=== PATIENT | male | born 1960 | race African-American/Black ===

== ENCOUNTER 2024-04-01 17:55 | Inpatient (IN) | payer MEDICARE, OTHER ==
[2024-04-01 19:17] VITALS: BMI 24.5
[2024-04-01] MEDS ORDERED: BENZOCAINE/MENTHOL (CHLORASEPTIC ) LOZENGE MM PRN (22:48)
[2024-04-01] MEDS ORDERED: POLYETHYLENE GLYCOL (HEALTHYLAX) 3350 17 GM PACKET PO PRN (22:48)
[2024-04-01] MEDS ORDERED: guaiFENesin 600 MG TABLET.ER (FP) PO PRN (22:48)
[2024-04-01] MEDS ORDERED: NALOXONE HCL 0.4 MG/ML VIAL IM PRN (22:48)
[2024-04-01] MEDS ORDERED: ACETAMINOPHEN 325 MG TABLET (FP) PO PRN (22:48)
[2024-04-01] MEDS ORDERED: MAGNESIUM HYDROX 2400MG/30ML ORAL SUSPENSION 30 ML CUP PO PRN (22:48)
[2024-04-01] MEDS ORDERED: BISMUTH SUBSALICYLATE 524 MG/30 ML PO PRN (22:48)
[2024-04-01] MEDS ORDERED: BENZONATATE 200 MG CAPSULE PO PRN (22:48)
[2024-04-01] MEDS ORDERED: NALOXONE (NARCAN) HCL 4 MG/0.1 ML SPRAY NS PRN (22:48)
[2024-04-01] MEDS ORDERED: ONDANSETRON *ODT* 4 MG TABLET SL PRN (22:48)
[2024-04-01] MEDS ORDERED: LOPERAMIDE HCL 2 MG CAPSULE PO PRN (22:48)
[2024-04-01] MEDS ORDERED: IBUPROFEN 600 MG TABLET (FP) PO PRN (22:48)
[2024-04-01] MEDS ORDERED: IBUPROFEN 400 MG TABLET (FP) PO PRN (22:48)
[2024-04-01] MEDS ORDERED: NICOTINE POLACRILEX 2 MG GUM BUC PRN (22:48)
[2024-04-01] MEDS: cloNIDine HCL 0.1 MG TABLET PO ONE (23:49)
[2024-04-02] MEDS: PRENATAL VITAMINS W/ FOLIC ACID TABLET (FP) PO SCH (10:20)
[2024-04-02] MEDS: NICOTINE 14 MG/24 HOURS TOPICAL PATCH TD SCH (10:21)
[2024-04-02] MEDS ORDERED: diazePAM 5 MG TABLET PO PRN (10:51)
[2024-04-02] MEDS: amLODIPine BESYLATE 5 MG TABLET (FP) PO SCH (11:55)
[2024-04-02] MEDS: PHENYTOIN NA EXTENDED 100 MG CAPSULE (FP) PO SCH (11:55)
[2024-04-02] MEDS: ASPIRIN 81 MG CHEWABLE TABLETS PO SCH (11:55)
[2024-04-02] MEDS: diazePAM 5 MG TABLET PO SCH (11:55)
[2024-04-02] MEDS: ALBUTEROL SO4 HFA INHALER IH PRN (17:55)
[2024-04-02] MEDS: MAG HYDROX/AL HYDROX/SIMETH 30 ML UNIT-DOSE CUP PO PRN (18:14)
[2024-04-02] MEDS: BUDESONIDE/FORMETEROL FUMARATE 80/4.5 mcg INHALER IH SCH (22:18)
[2024-04-02] MEDS: THIAMINE 100 MG TABLET PO SCH (22:19)
[2024-04-02] MEDS: ATORVASTATIN CA 40 MG TABLET (FP) PO SCH (22:19)
[2024-04-02] MEDS: MELATONIN 5 MG TABLETS PO SCH (22:19)
[2024-04-03] MEDS: traZODone HCL 50 MG TABLET (FP) PO SCH (22:34)
[2024-04-04] MEDS: diazePAM 5 MG TABLET PO SCH (05:58)
[2024-04-05 03:25] VITALS: RESP 16
[2024-04-05] MEDS: diazePAM 5 MG TABLET PO SCH (06:20)
[2024-04-05 13:24] VITALS: BP 156/76; PULSE 90; TEMP 97.9
[2024-04-05] MEDS: PHENYTOIN NA EXTENDED 100 MG CAPSULE (FP) PO SCH (13:40)
[2024-04-06] MEDS ORDERED: diazePAM 5 MG TABLET PO ONE (06:00)
== END 2024-04-05 14:16 | disposition home or self-care (01) | DRG 897 ==
LOC: YASAS 17:55 → Y3N 22:49
PROVIDERS: ADMIT Allergy & Immunology; ATTEND Surgery
PROC: HZ2ZZZZ Detoxification Services for Substance Abuse Treatment (ICD-10-PCS; principal; 2024-04-01)
DX: F10.230 Alcohol dependence with withdrawal, uncomplicated (principal); Z59.00 Homelessness unspecified; G40.909 Epilepsy, unspecified, not intractable, without status epilepticus; E78.5 Hyperlipidemia, unspecified; I10 Essential (primary) hypertension; J45.909 Unspecified asthma, uncomplicated; R26.89 Other abnormalities of gait and mobility; Z91.81 History of falling; Z99.89 Dependence on other enabling machines and devices; Z56.0 Unemployment, unspecified
CPT/HCPCS: 80305; 80307; 93005; 93010

== ENCOUNTER 2024-04-13 08:20 | Inpatient (IN) | payer MEDICARE, OTHER ==
[2024-04-13 08:50] VITALS: BMI 26.9
[2024-04-13] MEDS ORDERED: ACETAMINOPHEN 325 MG TABLET (FP) PO PRN (09:36)
[2024-04-13] MEDS ORDERED: MAGNESIUM HYDROX 2400MG/30ML ORAL SUSPENSION 30 ML CUP PO PRN (09:36)
[2024-04-13] MEDS ORDERED: IBUPROFEN 600 MG TABLET (FP) PO PRN (09:36)
[2024-04-13] MEDS ORDERED: BENZOCAINE/MENTHOL (CHLORASEPTIC ) LOZENGE MM PRN (09:36)
[2024-04-13] MEDS ORDERED: BENZONATATE 200 MG CAPSULE PO PRN (09:36)
[2024-04-13] MEDS ORDERED: hydrOXYzine PAMOATE 25 MG CAPSULE (FP) PO PRN (09:36)
[2024-04-13] MEDS ORDERED: IBUPROFEN 400 MG TABLET (FP) PO PRN (09:36)
[2024-04-13] MEDS ORDERED: NALOXONE (NARCAN) HCL 4 MG/0.1 ML SPRAY NS PRN (09:36)
[2024-04-13] MEDS ORDERED: guaiFENesin 600 MG TABLET.ER (FP) PO PRN (09:36)
[2024-04-13] MEDS ORDERED: NICOTINE POLACRILEX 2 MG GUM BUC PRN (09:36)
[2024-04-13] MEDS ORDERED: LOPERAMIDE HCL 2 MG CAPSULE PO PRN (09:36)
[2024-04-13] MEDS ORDERED: PRENATAL VITAMINS W/ FOLIC ACID TABLET (FP) PO ONE (09:54)
[2024-04-13] MEDS: PRENATAL VITAMINS W/ FOLIC ACID TABLET (FP) PO SCH (09:54)
[2024-04-13] MEDS: MELATONIN 5 MG TABLETS PO SCH (21:57)
[2024-04-13] MEDS: THIAMINE 100 MG TABLET PO SCH (21:57)
[2024-04-13] MEDS: BUDESONIDE/FORMETEROL FUMARATE 80/4.5 mcg INHALER IH SCH (21:58)
[2024-04-13] MEDS: ATORVASTATIN CA 40 MG TABLET (FP) PO SCH (21:58)
[2024-04-13] MEDS: PHENYTOIN NA EXTENDED 100 MG CAPSULE (FP) PO SCH (21:58)
[2024-04-14] MEDS: ALBUTEROL SO4 HFA INHALER IH PRN (06:51)
[2024-04-14] MEDS ORDERED: traZODone HCL 50 MG TABLET (FP) PO PRN (09:38)
[2024-04-14] MEDS ORDERED: hydrOXYzine PAMOATE 25 MG CAPSULE (FP) PO PRN (09:38)
[2024-04-14] MEDS ORDERED: amLODIPine BESYLATE 5 MG TABLET (FP) PO SCH ×2 (10:00)
[2024-04-14] MEDS: ASPIRIN 81 MG CHEWABLE TABLETS PO SCH (10:29)
[2024-04-14] MEDS: amLODIPine BESYLATE 2.5 MG TABLET (FP) PO SCH (10:31)
[2024-04-14 13:24] LABS: HEMATOCRIT 40.2 % (35.4-49); HEMOGLOBIN 13.5 GM/dL (11.7-16.9); MCH 32.5 pg (25.7-33.7); MCHC 33.5 g/dl (32.0-35.9); MEAN CELL VOLUME 96.9 fl (80-96); MEAN PLT VOLUME 9.3 fl (7.5-11.1); PLATELET COUNT 282 10^3/uL (134-434); POTASSIUM 4.2 mmol/L (3.5-5.1); RBC 4.15 M/mm3 (4.00-5.60); RDW 14.3 % (11.9-15.9); WHITE BLOOD COUNT 6.7 K/mm3 (4.0-10.0)
[2024-04-14 13:26] LABS: CALCIUM 10.2 mg/dL (8.5-10.1)
[2024-04-14 13:27] LABS: INR 1.03 (0.83-1.09); PROTHROMBIN TIME (PATIENT) 11.8 SEC (9.7-13.0)
[2024-04-14 13:28] LABS: ALBUMIN 3.5 g/dl (3.4-5.0); BLOOD UREA NITROGEN 13.8 mg/dL (7-18); MAGNESIUM 2.2 mg/dL (1.8-2.4)
[2024-04-14 13:31] LABS: CREATININE 0.9 mg/dL (0.55-1.3)
[2024-04-14 13:32] LABS: TOT PROT 6.5 g/dl (6.4-8.2)
[2024-04-14 15:09] LABS: BILIRUBIN,TOTAL 0.3 mg/dL (0.2-1)
[2024-04-14] MEDS: traZODone HCL 50 MG TABLET (FP) PO PRN (23:09)
[2024-04-15] MEDS: FLU VACCINE (FLULAVAL) PF 45 MCG/0.5 ML SYRINGE 2024-2025 IM ONE (11:09)
[2024-04-15] MEDS: PNEUMOC 20-VAL CONJ-DIP CRM/PF 0.5 ML SYRINGE IM ONE (11:11)
[2024-04-15] MEDS: POLYETHYLENE GLYCOL (HEALTHYLAX) 3350 17 GM PACKET PO PRN (17:37)
[2024-04-17] MEDS: MAG HYDROX/AL HYDROX/SIMETH 30 ML UNIT-DOSE CUP PO PRN (19:54)
[2024-04-19 07:18] VITALS: BP 142/84; PULSE 74; RESP 16; TEMP 97.4
[2024-04-19] MEDS: NALOXONE (NYS OPIOID OVERDOSE PROGRAM) 4 MG/0.1 ML SPRAY NS PRN (09:00)
== END 2024-04-19 09:03 | disposition left against medical advice (07) | DRG 894 ==
LOC: YASAS 08:20 → Y5N 11:40
PROVIDERS: ADMIT Psychiatry & Neurology Pain Medicine; ATTEND Psychiatry & Neurology Pain Medicine
PROC: HZ42ZZZ Group Counseling for Substance Abuse Treatment, Cognitive-Behavioral (ICD-10-PCS; principal; 2024-04-13)
DX: F10.20 Alcohol dependence, uncomplicated (principal); F14.20 Cocaine dependence, uncomplicated; F17.210 Nicotine dependence, cigarettes, uncomplicated; F31.9 Bipolar disorder, unspecified; E78.5 Hyperlipidemia, unspecified; G47.00 Insomnia, unspecified; I10 Essential (primary) hypertension; J45.909 Unspecified asthma, uncomplicated; R26.89 Other abnormalities of gait and mobility; Z91.81 History of falling; Z86.718 Personal history of other venous thrombosis and embolism; Z79.01 Long term (current) use of anticoagulants; Z99.89 Dependence on other enabling machines and devices
CPT/HCPCS: 36415; 80053; 80185; 80305; 80307; 82140; 82652; 83735; 85027; 85610; 86593; 86780; 87811; 90656; 90677; G0008; G0009

== ENCOUNTER 2025-04-26 11:37 | Inpatient (IN) | payer OTHER ==
[2025-04-26 12:14] VITALS: BMI 27.3
[2025-04-26] MEDS ORDERED: MAGNESIUM HYDROX 2400MG/30ML ORAL SUSPENSION 30 ML CUP PO PRN (12:56)
[2025-04-26] MEDS ORDERED: guaiFENesin 600 MG TABLET.ER (FP) PO PRN (12:56)
[2025-04-26] MEDS ORDERED: ACETAMINOPHEN 325 MG TABLET (FP) PO PRN (12:56)
[2025-04-26] MEDS ORDERED: BISMUTH SUBSALICYLATE 524 MG/30 ML PO PRN (12:56)
[2025-04-26] MEDS ORDERED: BENZONATATE 200 MG CAPSULE PO PRN (12:56)
[2025-04-26] MEDS ORDERED: POLYETHYLENE GLYCOL (HEALTHYLAX) 3350 17 GM PACKET PO PRN (12:56)
[2025-04-26] MEDS ORDERED: LOPERAMIDE HCL 2 MG CAPSULE PO PRN (12:56)
[2025-04-26] MEDS ORDERED: DICYCLOMINE HCL 10 MG CAPSULE PO PRN (12:56)
[2025-04-26] MEDS ORDERED: IBUPROFEN 600 MG TABLET (FP) PO PRN ×2 (12:56→13:47)
[2025-04-26] MEDS ORDERED: MAG HYDROX/AL HYDROX/SIMETH 30 ML UNIT-DOSE CUP PO PRN (12:56)
[2025-04-26] MEDS ORDERED: ONDANSETRON *ODT* 4 MG TABLET SL PRN (12:56)
[2025-04-26] MEDS ORDERED: IBUPROFEN 400 MG TABLET (FP) PO PRN ×2 (12:56→13:46)
[2025-04-26] MEDS ORDERED: NALOXONE (NARCAN) HCL 4 MG/0.1 ML SPRAY NS PRN (12:56)
[2025-04-26] MEDS ORDERED: METHOCARBAMOL 500 MG TABLET PO PRN (12:56)
[2025-04-26] MEDS ORDERED: BENZOCAINE/MENTHOL (CHLORASEPTIC ) LOZENGE MM PRN (12:56)
[2025-04-26] MEDS ORDERED: hydrOXYzine PAMOATE 25 MG CAPSULE (FP) PO PRN (12:56)
[2025-04-26] MEDS: THIAMINE 100 MG TABLET PO SCH (22:42)
[2025-04-26] MEDS: ATORVASTATIN CA 40 MG TABLET (FP) PO SCH (22:42)
[2025-04-26] MEDS: MELATONIN 5 MG TABLETS PO SCH (22:42)
[2025-04-26] MEDS: BUDESONIDE/FORMETEROL FUMARATE 80/4.5 mcg INHALER IH SCH (22:42)
[2025-04-26] MEDS: LACOSAMIDE 50 MG TABLET PO SCH (22:44)
[2025-04-27] MEDS ORDERED: FLUTICASONE/UMECLIDIN/VILANTER(200-62.5-25 TRELEGY ELLIPTA) INAHLER IH SCH (10:00)
[2025-04-27] MEDS: FAMOTIDINE 20 MG TABLET PO SCH (10:33)
[2025-04-27] MEDS: amLODIPine BESYLATE 10 MG TABLET (FP) PO SCH (10:33)
[2025-04-27] MEDS: PRENATAL VITAMINS W/ FOLIC ACID TABLET (FP) PO SCH (10:33)
[2025-04-27 12:02] LABS: MCHC 31.8 g/dl (32.3-36.5); MEAN CELL VOLUME 96.7 fl (79.0-92.2); MEAN PLT VOLUME 11.8 fl (9.4-12.4); RDW 13.5 % (12.2-16.4)
[2025-04-27 12:16] LABS: GLUCOSE,RANDOM 113.0 mg/dL (74-106)
[2025-04-27 12:17] LABS: TOT PROT 7.5 g/dl (6.4-8.2)
[2025-04-27 12:18] LABS: CO2 24.0 mmol/L (21-32)
[2025-04-27 12:19] LABS: ALK PHOS 80.0 U/L (40-150)
[2025-04-27 12:22] LABS: CREATININE 1.0 mg/dL (0.55-1.3); SGOT/AST 39.0 U/L (5-34); SGPT/ALT 29.0 U/L (0-55)
[2025-04-27 14:18] LABS: SYPHILIS W/ RPR CONF REACTIVE (NONREACTIVE)
[2025-04-27 16:12] LABS: RPR REFLEX REACTIVE 1:2 (NONREACTIVE)
[2025-04-27] MEDS: ALBUTEROL SO4 HFA INHALER IH PRN (18:56)
[2025-04-28 09:15] VITALS: BP 121/74; PULSE 80; RESP 18; TEMP 97.5
[2025-04-28] MEDS: PENICILLIN G BENZATHINE 2,400,000 UNIT/4 ML PFS IM ONE (11:12)
== END 2025-04-28 10:36 | disposition home or self-care (01) | DRG 897 ==
LOC: YASAS 11:37 → SUATTDRO 11:37 → Y3N 13:38
PROVIDERS: ADMIT Family Medicine; ATTEND Allergy & Immunology
PROC: HZ2ZZZZ Detoxification Services for Substance Abuse Treatment (ICD-10-PCS; principal; 2025-04-26)
DX: F14.20 Cocaine dependence, uncomplicated (principal); Z59.01 Sheltered homelessness; F10.20 Alcohol dependence, uncomplicated; E78.2 Mixed hyperlipidemia; G40.909 Epilepsy, unspecified, not intractable, without status epilepticus; I10 Essential (primary) hypertension; J45.20 Mild intermittent asthma, uncomplicated; Z87.891 Personal history of nicotine dependence; Z91.81 History of falling; Z99.89 Dependence on other enabling machines and devices
CPT/HCPCS: 36415; 80053; 80307; 85027; 86593; 86780; 93005; 93010